=== PATIENT | female | born 1975 | race African-American/Black ===

== ENCOUNTER 2016-04-18 05:59 | Emergency (ER) | payer OTHER ==
[~2016-04-18] VITALS: Ht 157.5 cm; Wt 103.4 kg
[2016-04-18 06:06] VITALS: TEMP 36.6; Ht 157.5 cm; Wt 103.4 kg
--- NOTE | 2016-04-18 06:46 | EMERGENCY ROOM VISIT NOTE ---
History Report prepared by Karla: Ria Peraza Under the Supervision of: Dr. Rickie Galvan D.O. 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 The patient states that she was walking this morning and slipped on ice and landed on the right side of her body causing the shoulder pain. She currently rates her current pain as a 7/10 in severity. She denies hitting her head or any neck or head pain. She states the pain is worsened by movement. The patient states that she has some minimal pain along the right side of her body including her knee and ankle where she fell. Source of History: patient Onset: shortly MOLD STRIPPER Position: shoulder (right) Symptom Intensity: 7/10 Timing: constant Modifying Factors (Worsening): movement Associated Symptoms: No neck pain Note: Associated symptoms: minimal right knee and ankle pain. Patient denies any head pain. Review of Systems All systems have been listed, reviewed, and are negative other than those previously mentioned. Please see Additional Medical History Sheet. Past Medical & Surgical Medical Problems: (1) Bronchitis (2) Diabetes Family History Diabetes mellitus Hypertension Social History Smoking Status: Never Smoker Smokeless Tobacco Use: No Alcohol Use: none Marital Status: single Housing Status: lives with family Occupation Status: employed Current/Historical Medications No Active Prescriptions or Reported Meds Allergies Coded Allergies: No Known Allergies (Unverified , 04/18/16) Physical Exam Vital Signs Date Time Temp Pulse Resp B/P Pulse Ox O2 Delivery O2 Flow Rate FiO2 04/18/16 08:03 69 18 149/95 99 04/18/16 06:06 36.6 75 18 152/96 100 Room Air Physical Exam GENERAL: Patient awake, alert, oriented x 3. Patient follows commands. Patient does not appear toxic. Patient is adequately hydrated and well- nourished. Appears to be in moderate distress. SKIN: No erythema, pallor, cyanosis or rash HEENT: Normal head,Head is normocephalic no lump bumps, riggs signs or raccoon signs. pupils equal, reactive to light and accommodation. Ears normal. Oral cavity and posterior pharynx appear normal. Neck: Without adenopathy, no neck vein distention. No step off tenderness. LUNGS: Clear to auscultation. No wheezes, no rales, no rhonchi. HEART: No murmurs. No gallops. No rubs ABDOMEN: No masses, no rebound, no hepatomegaly or splenomegaly. Obese. EXTREMITIES: No signs of trauma. No pedal or pretibial edema. No calf or thigh tenderness.Félix tenderness over the proximal right humerus. Motor sensory and circulatory sensation intact distally. Lower extremities have full ROM without pain or tenderness. NEUROLOGIC: Cranial nerves II-XII within normal limits. No gross motor sensory function deficits. Medical Decision & Procedures ER Provider Diagnostic Interpretation: X ray results are stated below per my interpretation and the radiologist's interpretation. RIGHT HUMERUS 2 VIEWS CLINICAL HISTORY: Fall with right arm pain. FINDINGS: AP and lateral views of the right humerus are obtained. No prior studies are available for comparison at the time of dictation. The skeletal structures are well mineralized. There is no radiographic evidence of humeral fracture. The shoulder and elbow joints are grossly preserved. The overlying soft tissues are within normal limits. Partially imaged right lung parenchyma appears clear. IMPRESSION: There is no radiographic evidence of right humeral fracture. Electronically signed by: Jose Hussein M.D. 04/18/2016 7:45 AM Dictated Date/Time: 04/18/2016 7:44 AM ED Course 0633: Past medical records reviewed. The patient was evaluated in room A10. A complete history and physical examination was performed. Pain medication was offered to the patient, but she declined. 0741: I reevaluated the patient at this time. She again declined pain medication for outpatient treatment. She will received a sling for her right upper extremity and have ice applied before being discharged. I discussed today' s findings with her. She verbalized agreement of the treatment plan. The patient was discharged home. Medical Decision Nurses notes reviewed. Medical history sheet reviewed. Differential diagnosis includes but is not limited to: Humeral fracture, AC separation, dislocation and contusion. The patient fell early this morning striking the right side of her body. She now complains of pain in her right upper arm. She minimizes pain elsewhere. She had no loss of consciousness and denies neck pain. Examination reveals marked tenderness over the right upper arm with some swelling she has minimal motion of that arm but good sensory and sensory function distally. X-ray does not reveal fracture. I do not think she has a dislocation or separation. The patient will be treated supportively with ice and sling. She declined pain medication. Impression Primary Impression: Contusion of right upper arm Additional Impressions: Fall Multiple contusions Scribe Attestation The scribe's documentation has been prepared under my direction and personally reviewed by me in its entirety. I confirm that the note above accurately reflects all work, treatment, procedures, and medical decision making performed by me. Departure Information Dispostion Home / Self-Care Prescriptions No Active Prescriptions or Reported Meds Referrals No Doctor, Assigned (PCP) Forms HOME CARE DOCUMENTATION FORM, IMPORTANT VISIT INFORMATION Patient Instructions My [facility] Additional Instructions Follow-up with your family physician within the next 10 days to make sure that you're healing. Use acetaminophen or ibuprofen as needed for pain. Apply ice intermittently for the next 48 hours and then you can start heat. Problem Qualifiers
--- NOTE | 2016-04-18 07:47 | DIAGNOSTIC IMAGING REPORT ---
RIGHT HUMERUS 2 VIEWS CLINICAL HISTORY: Fall with right arm pain. FINDINGS: AP and lateral views of the right humerus are obtained. No prior studies are available for comparison at the time of dictation. The skeletal structures are well mineralized. There is no radiographic evidence of humeral fracture. The shoulder and elbow joints are grossly preserved. The overlying soft tissues are within normal limits. Partially imaged right lung parenchyma appears clear. IMPRESSION: There is no radiographic evidence of right humeral fracture. Electronically signed by: Jose Hussein M.D. 04/18/2016 7:45 AM Dictated Date/Time: 04/18/2016 7:44 AM
[2016-04-18 08:03] VITALS: BP 149/95; PULSE 69; O2SAT 99
== END 2016-04-18 08:05 | disposition home or self-care (01) ==
LOC: C.EDB 06:00 → C.EDA 08:05
DX: S40.021A Contusion of right upper arm, initial encounter (principal); W00.0XXA Fall on same level due to ice and snow, initial encounter; E11.9 Type 2 diabetes mellitus without complications